=== PATIENT | male | born 1985 | race Caucasian/White ===

== ENCOUNTER 2024-11-21 13:37 | Emergency (ER) | payer MEDICARE, MEDICAID ==
[~2024-11-21] VITALS: Ht 185.4 cm; Wt 82.1 kg
[2024-11-21 13:41] VITALS: BP 92/69; TEMP 36.7; O2SAT 98
[2024-11-21 13:50] VITALS: PULSE 119; RESP 18; O2SAT 100
[2024-11-21] MEDS ORDERED: NALO4SPR BOTHNSTRLS (17:15)
[2024-11-21] MEDS ORDERED: BUPR1FIL7 SL (17:15)
== END 2024-11-21 17:22 | disposition home or self-care (01) ==
LOC: ER 13:37
DX: S01.01XD Laceration without foreign body of scalp, subsequent encounter (principal); Z48.02 Encounter for removal of sutures; Z76.0 Encounter for issue of repeat prescription; Z98.890 Other specified postprocedural states; X58.XXXD Exposure to other specified factors, subsequent encounter
CPT/HCPCS: 99281

== ENCOUNTER 2025-07-27 11:35 | Emergency (ER) | payer MEDICARE, MEDICAID ==
[~2025-07-27] VITALS: Ht 185.4 cm; Wt 80.0 kg
[~2025-07-27 11:35] MED LIST: BUPR1FIL7 SL; NALO4SPR BOTHNSTRLS
[2025-07-27 11:41] VITALS: BP 104/76; TEMP 37.1; O2SAT 99
[2025-07-27 11:46] VITALS: PULSE 86; RESP 18; O2SAT 99
[2025-07-28] MEDS ORDERED: IBUP-2437 MT (12:42)
[2025-07-28] MEDS ORDERED: CLIN-116 MT (12:42)
== END 2025-07-27 14:38 | disposition left against medical advice (07) ==
LOC: ER 11:35
DX: H92.09 Otalgia, unspecified ear (principal); Z98.890 Other specified postprocedural states
CPT/HCPCS: 99281

== ENCOUNTER 2025-07-28 11:50 | Emergency (ER) | payer MEDICARE, MEDICAID ==
[~2025-07-28] VITALS: Ht 185.4 cm; Wt 79.0 kg
[2025-07-28 11:52] VITALS: O2SAT 97
[2025-07-28 11:58] VITALS: TEMP 36.6; O2SAT 100
[2025-07-28] MEDS ORDERED: CLIN-116 MT (12:42)
[2025-07-28] MEDS ORDERED: IBUP-2437 MT (12:42)
[2025-07-28 12:50] VITALS: BP 107/75; PULSE 98; RESP 16
[2025-07-28] MEDS: KETOROLAC 15MG/ML VIAL IM ONE (12:50)
== END 2025-07-28 12:52 | disposition home or self-care (01) ==
LOC: ER 11:50
DX: H61.001 Unspecified perichondritis of right external ear (principal)
CPT/HCPCS: 99283; 96372; J1885

== ENCOUNTER 2025-08-06 10:35 | Emergency (ER) | payer MEDICARE, MEDICAID ==
[~2025-08-06] VITALS: Ht 182.9 cm; Wt 77.0 kg
[~2025-08-06 10:35] MED LIST changes: +CLIN-116 MT; +IBUP-2437 MT
[2025-08-06 11:03] VITALS: O2SAT 100
[2025-08-06 13:28] LABS: BASOPHILS % 0.4 % (0.0-2.0); EOSINOPHILS % 0.5 % (0.0-5.0); HEMATOCRIT. 35.4 % (42.0-52.0); HEMOGLOBIN. 11.7 g/dL (14.0-18.0); LYMPHOCYTES % 16.0 % (20.0-50.0); MEAN PLATELET VOLUME 7.7 fl (7.4-10.4); MONOCYTES % 6.0 % (2.0-8.0); NEUTROPHILS % 77.1 % (40.0-76.0); PLATELET 282 x1000/uL (130-400); RED BLOOD CELL COUNT 4.25 mill/uL (4.7-6.1); RED CELL DISTRIBUTION WIDTH 12.5 % (11.6-14.6)
[2025-08-06 14:03] LABS: CREATININE 0.8 mg/dL (0.6-1.3)
[2025-08-06 14:04] LABS: PROTEIN TOTAL 7.4 g/dL (6.0-8.3); UREA NITROGEN BLOOD 10 mg/dL (9-23)
[2025-08-06 14:05] LABS: ASPARTATE AMINOTRANSFERASE 18 IU/L (<34)
[2025-08-06 14:06] LABS: BILIRUBIN DIRECT 0.1 mg/dL (<=3.0); BILIRUBIN TOTAL 0.4 mg/dL (0.1-1.0)
[2025-08-06] MEDS ORDERED: SULF1TAB48 MT (14:21)
[2025-08-06] MEDS ORDERED: BO1 TP (14:22)
[2025-08-06 14:38] VITALS: BP 112/76; PULSE 96; RESP 14; TEMP 36.9; O2SAT 100
== END 2025-08-06 14:40 | disposition home or self-care (01) ==
LOC: ER 10:35
DX: S00.86XA Insect bite (nonvenomous) of other part of head, initial encounter (principal); Z79.899 Other long term (current) drug therapy; W57.XXXA Bitten or stung by nonvenomous insect and other nonvenomous arthropods, initial encounter; Y93.89 Activity, other specified; Y92.89 Other specified places as the place of occurrence of the external cause; Y99.8 Other external cause status
CPT/HCPCS: 36415; 80048; 80076; 83735; 85025; 99283